=== PATIENT | female | born 1960 | race Caucasian/White ===

== ENCOUNTER 2016-07-24 09:21 | Day surgery (SDC) | payer OTHER ==
[~2016-07-24 09:21] MED LIST: ACETAMINOPHEN 500 MG TAB PO ONE; BUPIVACAINE/EPI 0.25% 30 ML SDV ONE; HYDROCODONE/APAP 5/325 TAB PO PRN; PREGABALIN 150 MG CAP PO ONE; SCOPOLAMINE HYDROBROMIDE 1.5 MG PATCH TD ONE; ceFAZolin 2 GM/DEXTROSE 100 ML IV ONE
[2016-07-24] MEDS ORDERED: LR 1,000 ML IV ONE (09:40)
[2016-07-24] MEDS ORDERED: PROPOFOL 200 MG/20 ML VIAL ONE (09:41)
[2016-07-24] MEDS ORDERED: fentaNYL 100 MCG/2 ML INJ ONE ×3 (09:44→15:34)
[2016-07-24 09:51] VITALS: PULSE 57
[2016-07-24] MEDS ORDERED: ACETAMINOPHEN 500 MG TAB ONE (09:57)
[2016-07-24] MEDS ORDERED: SCOPOLAMINE HYDROBROMIDE 1.5 MG PATCH TD ONE (09:57)
[2016-07-24] MEDS ORDERED: CEFAZOLIN 2 GM/DEXTROSE/100 ML BAG IV ONE (09:58)
[2016-07-24] MEDS ORDERED: PREGABALIN 150 MG CAP ONE (09:58)
[2016-07-24] MEDS ORDERED: MIDAZOLAM 2 MG/2 ML VIAL IVP ONE (10:43)
--- NOTE | 2016-07-24 10:43 | PDANEPAE ---
ANE History of Present Illness left hamstring injury ANE Past Medical History - Cardiovascular History Hx Hypertension: No Hx Arrhythmias: No Hx Chest Pain: No Hx Coronary Artery / Peripheral Vascular Disease: No Hx CHF / Valvular Disease: No Hx Palpitations: No - Pulmonary History Hx COPD: No Hx Asthma/Reactive Airway Disease: No Hx Recent Upper Respiratory Infection: No Hx Oxygen in Use at Home: No - Neurologic History Hx Cerebrovascular Accident: No Hx Seizures: No Hx Dementia: No - Endocrine History Hx Diabetes: No - Renal History Hx Renal Disorders: No - Liver History Hx Hepatic Disorders: No - Neurological & Psychiatric Hx Hx Neurological and Psychiatric Disorders: No - Cancer History Hx Cancer: No - Congenital Disorder History Hx Congenital Disorders: No - GI History Hx Gastrointestinal Disorders: No - Chronic Pain History Chronic Pain: Yes (left hamstring and right shoulder currently) ANE Review of Systems - Exercise capacity METS (RN): 6 METS ANE Patient History - Allergies Allergies/Adverse Reactions: hydromorphone [From Dilaudid] Allergy (Verified 07/24/16 09:39) Vomiting - Home Medications Home Medications: NK [No Known Home Meds] 07/03/16 [Last Taken Unknown] - NPO status NPO Since - Liquids (Date): 07/23/16 NPO Since - Liquids (Time): 21:00 NPO Since - Solids (Date): 07/23/16 NPO Since - Solids (Time): 20:00 - Smoking Hx Smoking Status: Never smoked - Family Anes Hx Family Hx Anesthesia Complications: none ANE Labs/Vital Signs - Vital Signs Blood Pressure: 114/74 Heart Rate: 57 Respiratory Rate: 14 O2 Sat (%): 96 Height: 172.72 cm Weight: 57.606 kg ANE Physical Exam - Airway Neck exam: FROM Mallampati Score: Class 1 Mouth exam: normal dental/mouth exam - Pulmonary Pulmonary: no respiratory distress - Cardiovascular Cardiovascular: no murmur, rub, or gallop - ASA Status ASA Status: II ANE Anesthesia Plan Anesthesia Plan: general endotracheal anesthesia
[2016-07-24] MEDS ORDERED: MIDAZOLAM 2 MG/2 ML VIAL ONE (10:44)
[2016-07-24] MEDS ORDERED: morphINE *ANESTHESIA ONLY* 10 MG/ML VIAL ONE (11:16)
[2016-07-24] MEDS ORDERED: OXYCODONE/APAP 5/325 TAB PO PRN (11:32)
[2016-07-24] MEDS ORDERED: HYDROCODONE/APAP 5/325 TAB PO PRN (11:32)
[2016-07-24] MEDS ORDERED: fentaNYL 100 MCG/2 ML INJ IVP PRN ×2 (11:32→15:08)
[2016-07-24] MEDS ORDERED: NALOXONE HCL 0.4 MG/ML INJ IVP PRN ×2 (11:32→15:08)
[2016-07-24] MEDS ORDERED: PROMETHAZINE HCL 25 MG/ML INJ IVP PRN ×2 (11:32→15:08)
[2016-07-24] MEDS ORDERED: ACETAMINOPHEN 500 MG TAB PO PRN (11:32)
[2016-07-24] MEDS ORDERED: LR 500 ML IV PRN ×2 (11:32→15:08)
[2016-07-24] MEDS ORDERED: ONDANSETRON 4 MG/2 ML VIAL IVP PRN (15:08)
[2016-07-24] MEDS ORDERED: METOCLOPRAMIDE 10 MG/2 ML VIAL IVP PRN (15:08)
[2016-07-24] MEDS ORDERED: ALBUTEROL 3 ML DEYVIAL IH PRN (15:08)
--- NOTE | 2016-07-24 15:08 | POSTANESTH ---
Post Anesthetic Evaluation Cardiovascular Status: Normal, Stable Respiratory Status: Normal, Stable Level of Consciousness/Mental Status: Can Participate in Eval Pain Control: Adequate, Prn Tx Ordered Nausea/Vomiting Control: Inadeq, Add Tx Reqired Complications Possibly Related to Anesthesia: None Noted
[2016-07-24] MEDS ORDERED: ONDANSETRON 4 MG/2 ML VIAL ONE ×2 (15:09→15:26)
[2016-07-24] MEDS: ONDANSETRON 4 MG/2 ML VIAL IVP PRN ×2 (15:10→15:29)
[2016-07-24 15:25] VITALS: TEMP 97.5
[2016-07-24 18:28] VITALS: BP 103/67; RESP 14; O2SAT 97
== END 2016-07-24 18:15 | disposition home or self-care (01) ==
LOC: FSGY 09:21
PROVIDERS: ATTEND Orthopaedic Surgery Sports Medicine
PROC: 0LMM0ZZ Reattachment of Left Upper Leg Tendon, Open Approach (ICD-10-PCS; principal; 2016-07-24 11:00)
DX: S76.312A Strain of muscle, fascia and tendon of the posterior muscle group at thigh level, left thigh, initial encounter (principal); X58.XXXA Exposure to other specified factors, initial encounter
CPT/HCPCS: C1713; J0690; J2250; J2405; J2704; J3010